=== PATIENT | male | born 1940 | race Caucasian/White ===

== ENCOUNTER 2018-07-18 05:19 | Inpatient (IN) | payer MEDICARE, OTHER ==
[~2018-07-18] VITALS: Ht 188 cm; Wt 128.2 kg
[2018-07-18] VITALS (10 sets, daily range): BP systolic 118–136; BP diastolic 50–74; PULSE 52–68; TEMP 97.4–98.2
[~2018-07-18 05:19] MED LIST: BUMEX0.5 MG PO; CALCIUM PO; DOXAZOSIN4 MG PO; LEVAQUIN 750MG750 MG PO; RAMIPRIL2.5 MG PO; WARFARIN SOD5 MG PO
[2018-07-18] MEDS ORDERED: COZAAR100 MG PO (06:06)
[2018-07-18] MEDS ORDERED: COUMADIN 5MG5 MG/TAB PO (06:07)
[2018-07-18] MEDS ORDERED: COUMADIN 22.5 MG/TAB PO (06:08)
[2018-07-18] MEDS ORDERED: TYLENOL PM EXTR1 TA1 PO (06:08)
--- NOTE | 2018-07-18 06:37 | NUR ---
Patient admitted to room 8 at 0531 ambulatory accompanied by spouse. Readied for surgery and resting on cart.
--- NOTE | 2018-07-18 12:04 | NUR ---
First visit from the coffee [employer] worker. No needs right now.
--- NOTE | 2018-07-18 20:30 | NUR ---
Completed medication administration and assessment; PT tolerated all cares well; PT denies pain or discomfort at time of assessment; PT A&Ox4, LCTA, BS active x4, VTE SCDs, low fall risk, and able to AMB stable; PT able to self assist to a comfortable position in bed with personal items and call light within reach; CPAP set up for even with RT; PT continues to drain clear yellow urine to dependent drain bag post TURP; No further assessed or reported concerns at time of exit; Will continue to monitor. CDA
--- NOTE | 2018-07-19 02:08 | NUR ---
PT resting well in bed with CPAP in place; CBI clamped with clear yellow drainage through catheter wit dependent drainage collection bag; No further assessed or reported concerns or pain at time of rounds; PT able to return to comfortable position in bed with personal items and call light within reach; Will continue to monitor. CDA
[2018-07-19 04:22] VITALS: BP 111/71; BP 134/52; PULSE 50; PULSE 63; TEMP 98.5
--- NOTE | 2018-07-19 07:02 | NUR ---
Report given to LOS uL; No significant changes during shift change. CDA
[2018-07-19 08:03] VITALS: BP 129/48; PULSE 59; TEMP 97.7
--- NOTE | 2018-07-19 10:56 | NUR ---
OLVIN and SW student met with the patient to discuss discharge plan. The patient lives in [place] with his , Cassidy. He reports independence with ADLs and has a cane, walker, and a CPAP from [employer]. The patient's primary care provider is MARBELLA Gardner and he receives his medications at [facility]. He reports no difficulties obtaining his meds. The patient does not have advanced directives in EMR, but he states that he does have them completed. The patient plans to return home with his upon discharge. No additional needs at this time.
[2018-07-19 12:31] VITALS: BP 143/73; PULSE 80; TEMP 98.5
[2018-07-19 16:20] VITALS: BP 142/65; PULSE 75; TEMP 98.3
[2018-07-19 19:57] VITALS: BP 149/63; PULSE 86; TEMP 98
--- NOTE | 2018-07-19 21:30 | NUR ---
Patient rests in bed awake and alert. Reports pain when he knows he's voiding into catheter but denies need for pain med or bladder spasm med. Alert and oriented x 4. Pleasant. Declines snack at this time. Duque draining clear yellow pale urine. HS meds reviewed and given (takes tylenol pm at 2300). CPAP set up for night. Duque cath care provided along with applying ointments.
[2018-07-20 00:07] VITALS: BP 133/55; PULSE 62; TEMP 98.1
--- NOTE | 2018-07-20 03:15 | NUR ---
Patient resting in bed with eyes closed. Respirations with ease.
[2018-07-20 03:36] VITALS: BP 145/59; PULSE 53; TEMP 97.7
[2018-07-20 08:25] VITALS: BP 148/71; PULSE 57; TEMP 98
--- NOTE | 2018-07-20 08:50 | NUR ---
Patient in bed resting, watching televison. Alert and oriented x3. Shift assesssment complete. Duque removed by shift manager nurse this AM. Patient has 2 out of 6 cups complete, with clear peach urine. Denies pain or further needs at this time.
--- NOTE | 2018-07-20 11:13 | NUR ---
Patient called out to nurses station. Patient had questions on 6 cup routine. Re-educated on 6 cup. Patient has filled 4/6 cups, voiding clear yellow urine.
--- NOTE | 2018-07-20 12:08 | NUR ---
Initial visit; Patient thanked Utilization Management Rn for looking in on him and offering God's blessings.
[2018-07-20 12:31] VITALS: BP 158/64; PULSE 64; TEMP 98.2
--- NOTE | 2018-07-20 14:00 | NUR ---
Discharge instructions provided to patient. Patient instructed on signs and symptoms of infection and when to call provider. INT to left wrist discontinued, Catheter tip intact tolerated procedure well. All questions answered, denies pain or further needs at this time. Patient getting dressed, at bedside. Patient out by wheelchair with surgical staff.
== END 2018-07-20 14:00 | disposition home or self-care (01) | DRG 713 ==
LOC: SDCO 05:19 → SURG 09:42 → SDCO 13:00 → SURG 07-20 14:00 → SDCO 08-17 13:00
PROVIDERS: ADMIT Urology
PROC: 0V508ZZ Destruction of Prostate, Via Natural or Artificial Opening Endoscopic (ICD-10-PCS; principal; 2018-07-18 07:30)
PROC: 0TNC8ZZ Release Bladder Neck, Via Natural or Artificial Opening Endoscopic (ICD-10-PCS; 2018-07-18 07:30)
DX: N40.1 Benign prostatic hyperplasia with lower urinary tract symptoms (principal); N13.8 Other obstructive and reflux uropathy; Z91.09 Other allergy status, other than to drugs and biological substances; R31.9 Hematuria, unspecified; I50.9 Heart failure, unspecified; E78.5 Hyperlipidemia, unspecified; M81.0 Age-related osteoporosis without current pathological fracture; Z87.891 Personal history of nicotine dependence; E66.9 Obesity, unspecified; Z68.35 Body mass index [BMI] 35.0-35.9, adult; Z86.718 Personal history of other venous thrombosis and embolism; Z79.01 Long term (current) use of anticoagulants; I11.0 Hypertensive heart disease with heart failure
CPT/HCPCS: A4314; C1769; J0461; J0690; J2370; J2405; J2704; J3010; J7120

== ENCOUNTER 2020-05-18 12:38 | Day surgery (SDC) | payer MEDICARE, OTHER ==
[~2020-05-18] VITALS: Ht 188 cm; Wt 139.9 kg
[~2020-05-18 12:38] MED LIST changes: +COUMADIN 22.5 MG/TAB PO; +COUMADIN 5MG5 MG/TAB PO; +COZAAR100 MG PO; +TYLENOL PM EXTR1 TA1 PO
[2020-05-18] MEDS ORDERED: COZAAR100 MG PO (13:11)
[2020-05-18] MEDS ORDERED: MUCINEX 60600 MG/TA1 PO (13:12)
[2020-05-18 13:13] VITALS: BP 129/75; PULSE 61; TEMP 98.4
[2020-05-18 13:36] LABS: POTASSIUM 4.4 mmol/L (3.4-5.0)
[2020-05-18 13:38] LABS: INR 3.1 (0.8-3.0); PROTHROMBIN TIME 35.6 SECONDS (9.7-12.8)
[2020-05-18] MEDS ORDERED: PACERONE200 MG PO (13:56)
[2020-05-18 14:11] LABS: THYROID STIMULATING HORMONE 3.97 uIU/mL (0.465-4.680)
[2020-05-18 15:20] VITALS: BP 116/69; PULSE 61
[2020-05-18 15:30] VITALS: BP 119/76; PULSE 82
[2020-05-18 15:45] VITALS: BP 115/78; PULSE 81
[2020-05-18 16:00] VITALS: BP 117/70; PULSE 84
--- NOTE | 2020-05-18 16:15 | NUR ---
Pt steady around room with walking stick. Tolerating PO without issue. DC instructions reviewed, pt expresses understanding. IV is DC'd with catheter intact. Dr Hill was notified of automatic readout from post cardioversion EKG with notation of acute IL and ST depression. He stated that this was typical for pt and no further action was needed, and pt could discharge. Pt was assisted out by wheelchair to 's car.
== END 2020-05-18 16:56 | disposition home or self-care (01) ==
LOC: COL.CAR 12:38
PROVIDERS: Internal Medicine Interventional Cardiology
DX: I48.0 Paroxysmal atrial fibrillation (principal); I49.5 Sick sinus syndrome; I11.0 Hypertensive heart disease with heart failure; I50.9 Heart failure, unspecified; G47.33 Obstructive sleep apnea (adult) (pediatric); G89.29 Other chronic pain; E66.01 Morbid (severe) obesity due to excess calories; Z79.01 Long term (current) use of anticoagulants; Z86.711 Personal history of pulmonary embolism; Z87.891 Personal history of nicotine dependence
CPT/HCPCS: J2704; J7030

== ENCOUNTER → 2020-09-24 | Outpatient (CLI) | payer MEDICARE, OTHER ==
[~2020-09-24] MED LIST changes: +MUCINEX 60600 MG/TA1 PO; +PACERONE200 MG PO
== END ==
LOC: COL.RAD 09-23 09:00
DX: M17.11 Unilateral primary osteoarthritis, right knee (principal); S86.811A Strain of other muscle(s) and tendon(s) at lower leg level, right leg, initial encounter; S83.241A Other tear of medial meniscus, current injury, right knee, initial encounter